=== PATIENT | female | born 1965 | race Two or more races ===

== ENCOUNTER 2021-02-24 17:12 | Emergency (ER) | payer OTHER ==
[~2021-02-24] VITALS: Ht 162.6 cm; Wt 96.9 kg
--- NOTE | 2021-02-24 19:18 | NUR ---
pt came into ed this evening d/t a [id number], no hx of same. Denies light sensitivity. pt reports its making her eyes throb and gums hurt as well, states it has been accompanied with episodes of nausea and a few episodes of vomitting, has been taking ibuprofen and tylenol around the clock for symptom relief. reports this provided some relief but wears off. pt placed on spo2/bp monitoring, bed in lowest, rails engaged, call light on lap, wctm.
[2021-02-24] MEDS ORDERED: KETOROLAC 30 MG/1 ML ONE (19:53)
[2021-02-24] MEDS ORDERED: ACETAMINOPHEN 500 MG TABLET ONE (19:53)
[2021-02-24] MEDS ORDERED: ACETAMINOPHEN 500 MG TABLET PO ONE (20:00)
[2021-02-24] MEDS ORDERED: KETOROLAC 30 MG/1 ML IM ONE (20:00)
[2021-02-24 20:50] VITALS: BP 157/89
--- NOTE | 2021-02-24 21:04 | NUR ---
Patient given discharge instructions and they have confirmed that they understand the instructions. Patient ambulatory with steady gait. NAD, all questions answered appropriately, denies additional needs at this time. No personal belongings left in room after discharge.
== END 2021-02-24 21:05 | disposition home or self-care (01) ==
LOC: ED 19:24
DX: R51.9 Headache, unspecified (principal); J01.00 Acute maxillary sinusitis, unspecified; J30.2 Other seasonal allergic rhinitis; I10 Essential (primary) hypertension; E11.9 Type 2 diabetes mellitus without complications; E78.00 Pure hypercholesterolemia, unspecified; M10.9 Gout, unspecified
CPT/HCPCS: 71045; 96372; 99283; J1885